=== PATIENT | female | born 1995 | race Native Hawaiian/Other Pacific Islander ===

== ENCOUNTER 2022-01-13 15:58 | Outpatient (CLI) | payer OTHER | END 2022-01-13 19:14 | disposition home or self-care (01) | LOC: RESP 15:58 | PROVIDERS: ATTEND Plastic Surgery Plastic Surgery Within the Head and Neck | DX: Z01.812 Encounter for preprocedural laboratory examination (principal); Z01.810 Encounter for preprocedural cardiovascular examination | CPT/HCPCS: 93005 ==